=== PATIENT | female | born 1975 | race African-American/Black ===

== ENCOUNTER 2018-08-20 10:44 | Emergency (ER) | payer OTHER ==
--- NOTE | 2018-08-20 11:18 | ER ---
Nurse's Notes [facility] Name: Mirella Caruso Age: 43 yrs Sex: Female : 1975 Arrival Date: 08/20/2018 Time: 10:47 Bed 15 Private MD: Carlos Aguilera Diagnosis: Candidiasis Presentation: 08/20 11:05 Presenting complaint: Patient states: has been dealing with a yeast infection X 3 iw weeks, missed her doctor appt to get a refill on her prescription. Pt denies pain or burning with urination. Transition of care: patient was not received from another setting of care. Onset of symptoms was July 28, 2018. Risk Assessment: Do you want to hurt yourself or someone else? Patient reports no desire to harm self or others. Initial Sepsis Screen: Does the patient meet any 2 criteria? No. Patient's initial sepsis screen is negative. Does the patient have a suspected source of infection? No. Patient's initial sepsis screen is negative. Care prior to arrival: None. 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 - Social history:: Smoking status: Patient/guardian denies using tobacco. - Ebola Screening: : Patient negative for fever greater than or equal to 101.5 degrees Fahrenheit, and additional compatible Ebola Virus Disease symptoms Patient denies exposure to infectious person Patient denies travel to an Ebola-affected area in the 21 days before illness onset No symptoms or risks identified at this time. Screenin:10 Abuse screen: Denies threats or abuse. Denies injuries from another. Nutritional ph screening: No deficits noted. Tuberculosis screening: No symptoms or risk factors identified. Fall Risk None identified. Assessment: 11:10 General: Appears in no apparent distress. comfortable, well groomed, Behavior is calm, ph cooperative, appropriate for age, Denies fever, feeling ill, chills. Pain: Complains of pain in pelvis Quality of pain is described as burning. Neuro: Level of Consciousness is awake, alert, obeys commands, Oriented to person, place, time, situation. Cardiovascular: Capillary refill < 3 seconds in bilateral fingers Patient's skin is warm and dry. Respiratory: Airway is patent Respiratory effort is even, unlabored. : Reports vaginal itching. Derm: Skin is healthy with good turgor, Skin is pink, warm \T\ dry. Musculoskeletal: Circulation, motion, and sensation intact. Range of motion: intact in all extremities. Vital Signs: 11:07 BP 118 / 88; Pulse 77; Resp 16; Temp 98.2; Pulse Ox 100% on R/A; Weight 92.53 kg; iw Height 5 ft. 4 in. (162.56 cm); 11:07 Body Mass Index 35.02 (92.53 kg, 162.56 cm) iw ED Course: 10:47 Patient arrived in ED. mr 10:48 Carlos Aguilera MD is Private Physician. mr 11:00 [facility] Esp[facility] kb 11:00 João Mcmahan MD is Attending Physician. kb 11:07 Triage completed. iw 11:09 Arm band placed on. iw 11:10 Patient has correct armband on for positive identification. Bed in low position. Call ph light in reach. 11:15 Citlali Vanegas, RN is Primary Nurse. ph 11:30 No provider procedures requiring assistance completed. Patient did not have IV access ph during this emergency room visit. Administered Medications: No medications were administered Outcome: 11:17 Discharge ordered by MD. kb 11:31 Patient left the ED. ph 11:31 Discharged to home ambulatory. ph 11:31 Condition: good 11:31 Discharge instructions given to patient, Instructed on discharge instructions, follow up and referral plans. medication usage, Demonstrated understanding of instructions, follow-up care, medications, Prescriptions given X 1. Signatures: Shanda Espinoza FNP-C FNP-Ckb Rosa Zhang Zayra Santana RN RN Citlali Vanegas RN RN ph
--- NOTE | 2018-08-20 11:18 | EDPHYS ---
Physician Documentation [facility] Name: Mirella Caruso Age: 43 yrs Sex: Female : 1975 Arrival Date: 08/20/2018 Time: 10:47 Bed 15 Private MD: Carlos Aguilera ED Physician João Mcmahan HPI: 08/20 11:11 This 43 yrs old Black Female presents to ER via Ambulatory with complaints of Vaginal kb Itching. 11:11 The patient presents with perineal itching, of both inguinal areas. Onset: The kb symptoms/episode began/occurred yesterday. Modifying factors: The symptoms are alleviated by nothing, the symptoms are aggravated by sweating, friction. Associated signs and symptoms: Pertinent positives: itching, Pertinent negatives: constipation, cramping, diarrhea, dyspareunia, dysuria, fever, hematuria, nausea, urinary frequency, vaginal bleeding, vaginal discharge, vomiting. Severity of symptoms: At their worst the symptoms were moderate, in the emergency department the symptoms are unchanged. The patient has not experienced similar symptoms in the past. The patient has not recently seen a physician. Pt reports she gets a yeast rash frequently to bilateral inguinal areas. States she normally uses clotrimazole/betamethasone for it, but she ran out. States she is about to go on vacation and needs the cream because she is having the symptoms again. . 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 - Social history:: Smoking status: Patient/guardian denies using tobacco. - Ebola Screening: : Patient negative for fever greater than or equal to 101.5 degrees Fahrenheit, and additional compatible Ebola Virus Disease symptoms Patient denies exposure to infectious person Patient denies travel to an Ebola-affected area in the 21 days before illness onset No symptoms or risks identified at this time. ROS: 11:16 Constitutional: Negative for fever, chills, and weight loss, Neck: Negative for injury, kb pain, and swelling, Cardiovascular: Negative for chest pain, palpitations, and edema, Respiratory: Negative for shortness of breath, cough, wheezing, and pleuritic chest pain, Abdomen/GI: Negative for abdominal pain, nausea, vomiting, diarrhea, and constipation, MS/Extremity: Negative for injury and deformity, Neuro: Negative for headache, weakness, numbness, tingling, and seizure. 11:16 Skin: Positive for rash, of the right femoral area and left femoral area, itching, raw. Exam: 11:11 Constitutional: This is a well developed, well nourished patient who is awake, alert, kb and in no acute distress. Head/Face: Normocephalic, atraumatic. Chest/axilla: Normal chest wall appearance and motion. Nontender with no deformity. No lesions are appreciated. Cardiovascular: Regular rate and rhythm with a normal S1 and S2. No gallops, murmurs, or rubs. Normal PMI, no JVD. No pulse deficits. Respiratory: Lungs have equal breath sounds bilaterally, clear to auscultation and percussion. No rales, rhonchi or wheezes noted. No increased work of breathing, no retractions or nasal flaring. Abdomen/GI: Soft, non-tender, with normal bowel sounds. No distension or tympany. No guarding or rebound. No evidence of tenderness throughout. Skin: Warm, dry with normal turgor. Normal color with no rashes, no lesions, and no evidence of cellulitis. MS/ Extremity: Pulses equal, no cyanosis. Neurovascular intact. Full, normal range of motion. Neuro: Awake and alert, GCS 15, oriented to person, place, time, and situation. Cranial nerves II-XII grossly intact. Motor strength 5/5 in all extremities. Sensory grossly intact. Cerebellar exam normal. Normal gait. Vital Signs: 11:07 BP 118 / 88; Pulse 77; Resp 16; Temp 98.2; Pulse Ox 100% on R/A; Weight 92.53 kg; iw Height 5 ft. 4 in. (162.56 cm); 11:07 Body Mass Index 35.02 (92.53 kg, 162.56 cm) iw MDM: 11:01 Patient medically screened. kb 11:16 Data reviewed: vital signs, nurses notes. Data interpreted: Pulse oximetry: on room air kb is 100 %. Interpretation: normal. Counseling: I had a detailed discussion with the patient and/or guardian regarding: the historical points, exam findings, and any diagnostic results supporting the discharge/admit diagnosis, the need for outpatient follow up, a family practitioner, to return to the emergency department if symptoms worsen or persist or if there are any questions or concerns that arise at home. Administered Medications: No medications were administered Disposition: 11:34 Co-signature as Attending Physician, João Mcmahan MD. rn Disposition: 08/20/18 11:17 Discharged to Home. Impression: Candidiasis. - Condition is Stable. - Discharge Instructions: Skin Yeast Infection. - Prescriptions for clotrimazole- betamethasone 1-0.05 % Topical lotion - apply 1 application by TOPICAL route 2 times per day As needed; 1 tube. - Medication Reconciliation Form, Thank You Letter, Antibiotic Education, Prescription Opioid Use form. - Follow up: Emergency Department; When: As needed; Reason: Worsening of condition. Follow up: Private Physician; When: 2 - 3 days; Reason: Recheck today's complaints, Continuance of care, Re-evaluation by your physician. Signatures: Shanda Espinoza, NATHANIEL-C REGISTERED MAIL CLERK-Zayra Miranda, João Owen RN, MD MD rn Hall, Patricia, RN RN ph Corrections: (The following items were deleted from the chart) 11: 11:17 08/20/2018 11:17 Discharged to Home. Impression: Candidiasis. Condition is ph Stable. Discharge Instructions: Skin Yeast Infection. Prescriptions for clotrimazole-betamethasone 1-0.05 % Topical lotion - apply 1 application by TOPICAL route 2 times per day As needed; 1 tube. and Forms are Medication Reconciliation Form, Thank You Letter, Antibiotic Education, Prescription Opioid Use. Follow up: Emergency Department; When: As needed; Reason: Worsening of condition. Follow up: Private Physician; When: 2 - 3 days; Reason: Recheck today's complaints, Continuance of care, Re-evaluation by your physician. kb
== END 2018-08-20 11:31 | disposition home or self-care (01) ==
LOC: ER 10:44
DX: B37.3 Candidiasis of vulva and vagina (principal); Z88.0 Allergy status to penicillin
CPT/HCPCS: 99282

== ENCOUNTER 2019-07-08 21:37 | Emergency (ER) | payer OTHER ==
[2019-07-08] MEDS ORDERED: TETRACAINE HCL 0.5% 4ML OPTH ONE (21:56)
[2019-07-08] MEDS ORDERED: FLUORESCEIN SODIUM 1 MG/WRAP ONE (21:56)
--- NOTE | 2019-07-08 22:31 | EDPHYS ---
Physician Documentation [facility] Name: Mirella Caruso Age: 44 yrs Sex: Female : 1975 Arrival Date: 07/08/2019 Time: 21:41 Bed 15 Private MD: Carlos Aguilera ED Physician Tk Hernandez HPI: 07/08 22:20 This 44 yrs old Black Female presents to ER via Ambulatory with complaints of Foreign ma2 Body In Eye. 22:20 Onset: The symptoms/episode began/occurred suddenly, 2 day(s) ago. Associated signs and ma2 symptoms: Pertinent negatives: chills, dizziness, fever, runny nose. Patient wears glasses. Severity of symptoms: At their worst the symptoms were very mild in the emergency department the symptoms are unchanged. The patient has not experienced similar symptoms in the past. 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 - Coronavirus screen:: The patient has NOT traveled to [place] in the past 14 days. Proceed with normal triage process as indicated. - Social history:: Smoking status: Patient/guardian denies using tobacco, the patient reports quitting approximately 8 years ago. - Ebola Screening: : No symptoms or risks identified at this time. ROS: 22:25 Constitutional: Negative for fever, chills, and weight loss. ma2 22:25 All other systems are negative. Exam: 22:25 Visual Acuity: Visual acuity is within normal limits. ma2 22:25 Constitutional: This is a well developed, well nourished patient who is awake, alert, and in no acute distress. Head/Face: Normocephalic, atraumatic. Eyes: Pupils equal round and reactive to light, extra-ocular motions intact. Lids and lashes normal. Conjunctiva and sclera are non-icteric and not injected. Cornea within normal limits. Periorbital areas with no swelling, redness, or edema. wood lamp exam done with tetracaine and floric. exam, dust peice seen embedded n cornea, no glob rupture, attempted to romove with qtips, after flush with ns, failed attempts ENT: Nares patent. No nasal discharge, no septal abnormalities noted. Tympanic membranes are normal and external auditory canals are clear. Oropharynx with no redness, swelling, or masses, exudates, or evidence of obstruction, uvula midline. Mucous membranes moist. Vital Signs: 21:56 BP 130 / 81; Pulse 81; Resp 16 S; Temp 98.1(O); Pulse Ox 100% on R/A; Weight 90.72 kg bb (R); Height 5 ft. 4 in. (162.56 cm) (R); Pain 9/10; 22:35 BP 109 / 68; Pulse 70; Resp 16; Pulse Ox 100% on R/A; rv 21:56 Body Mass Index 34.33 (90.72 kg, 162.56 cm) bb Visual Acuity: 21:57 Left Eye Visual acuity 20/15, ; Right Eye Visual acuity 20/15, ; Both Eyes Visual bb acuity 20/15; Without Lenses; MDM: 21:45 Patient medically screened. ma2 22:25 Differential diagnosis: Corneal abrasion of Data reviewed: vital signs, nurses notes. ma2 Counseling: I had a detailed discussion with the patient and/or guardian regarding: the historical points, exam findings, and any diagnostic results supporting the discharge/admit diagnosis, the presence of at least one elevated blood pressure reading (>120/80) during this emergency department visit, the need for outpatient follow up. Response to treatment: There is no appreciated change of the patient's symptoms at this time. Administered Medications: 22:15 Drug: Tetracaine Drops 0.5 % 1 drops {Note: Dr Hernandez used it on the left eye.} Route: rv Ophthalmic; Site: left eye; 22:38 Follow up: Response: No adverse reaction rv Disposition: 07/08/19 22:30 Discharged to Home. Impression: Foreign body in conjunctival sac, left eye. - Condition is Stable. - Discharge Instructions: Corneal Abrasion, [id number]. - Prescriptions for Gentamicin 0.3 % Ophthalmic Drops - instill 1 drop by OPHTHALMIC route every 4 hours for 7 days; 1 bottle. - Medication Reconciliation Form, Thank You Letter, Antibiotic Education, Prescription Opioid Use form. - Follow up: Carlos Kennedy MD; When: Tomorrow; Reason: Continuance of care. Follow up: Mario Kennedy MD; When: Tomorrow; Reason: Continuance of care. Signatures: Ambreen Glover RN RN Tk Caballero MD MD ma2 Sanjay Elizalde RN RN rv Corrections: (The following items were deleted from the chart) 22:39 22:30 07/08/2019 22:30 Discharged to Home. Impression: Foreign body in conjunctival rv sac, left eye. Condition is Stable. Forms are Medication Reconciliation Form, Thank You Letter, Antibiotic Education, Prescription Opioid Use. Follow up: Mario Kennedy; When: Tomorrow; Reason: Continuance of care. ma2
--- NOTE | 2019-07-08 22:31 | ER ---
Nurse's Notes [facility] Name: Mirella Caruso Age: 44 yrs Sex: Female : 1975 Arrival Date: 07/08/2019 Time: 21:41 Bed 15 Private MD: Carlos Aguilera Diagnosis: Foreign body in conjunctival sac, left eye Presentation: 07/08 21:53 Presenting complaint: Patient states: she was cleaning house yesterday dusting the bb ceiling and got something in her left eye which is very painful and is making her eye red. Transition of care: patient was not received from another setting of care. Onset of symptoms was July 07, 2019. Risk Assessment: Do you want to hurt yourself or someone else? Patient reports no desire to harm self or others. Initial Sepsis Screen: Does the patient meet any 2 criteria? No. Patient's initial sepsis screen is negative. Does the patient have a suspected source of infection? No. Patient's initial sepsis screen is negative. Care prior to arrival: None. 21:53 Method Of Arrival: Ambulatory bb 21:53 Acuity: PING 4 bb Triage Assessment: 22:37 General: Behavior is calm, cooperative. 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 - Coronavirus screen:: The patient has NOT traveled to [place] in the past 14 days. Proceed with normal triage process as indicated. - Social history:: Smoking status: Patient/guardian denies using tobacco, the patient reports quitting approximately 8 years ago. - Ebola Screening: : No symptoms or risks identified at this time. Screenin:35 Abuse screen: Denies threats or abuse. Denies injuries from another. Nutritional rv screening: No deficits noted. Tuberculosis screening: No symptoms or risk factors identified. Fall Risk None identified. Assessment: 22:04 General: Appears in no apparent distress. Pain: Complains of pain in left eye. rv 22:04 Neuro: Level of Consciousness is awake, alert, obeys commands, Oriented to person, rv place, time, situation. 22:04 EENT: Eyes redness on the left eye. rv 22:34 Reassessment: Dr Hernandez done the eye exam the bedside. explained the plan of care. rv discharged ambulatory. Patient states feeling better. Vital Signs: 21:56 BP 130 / 81; Pulse 81; Resp 16 S; Temp 98.1(O); Pulse Ox 100% on R/A; Weight 90.72 kg bb (R); Height 5 ft. 4 in. (162.56 cm) (R); Pain 9/10; 22:35 BP 109 / 68; Pulse 70; Resp 16; Pulse Ox 100% on R/A; rv 21:56 Body Mass Index 34.33 (90.72 kg, 162.56 cm) bb Visual Acuity: 21:57 Left Eye Visual acuity 20/15, ; Right Eye Visual acuity 20/15, ; Both Eyes Visual bb acuity 20/15; Without Lenses; ED Course: 21:41 Patient arrived in ED. es 21:41 Carlos Aguilera MD is Private Physician. es 21:45 Tk Hernandez MD is Attending Physician. ma2 21:51 Sanjay Elizalde RN is Primary Nurse. rv 21:55 Triage completed. bb 21:56 Arm band placed on Patient placed in an exam room, on a stretcher, on pulse oximetry. bb 22:28 Carlos Kennedy MD is Referral Physician. ma2 22:28 Mario Kennedy MD is Referral Physician. ma2 22:28 Referral Physician role handed off by Carlos Kennedy MD ma2 22:36 No provider procedures requiring assistance completed. Patient did not have IV access rv during this emergency room visit. 22:37 Patient has correct armband on for positive identification. Pulse ox on. NIBP on. rv Administered Medications: 22:15 Drug: Tetracaine Drops 0.5 % 1 drops {Note: Dr Hernandez used it on the left eye.} Route: rv Ophthalmic; Site: left eye; 22:38 Follow up: Response: No adverse reaction rv Outcome: 22:30 Discharge ordered by . ma2 22:36 Discharged to home ambulatory. rv 22:36 Condition: good 22:36 Discharge instructions given to patient, Instructed on discharge instructions, follow up and referral plans. medication usage, Demonstrated understanding of instructions, follow-up care, medications, Prescriptions given X 1. 22:39 Patient left the ED. rv Signatures: Kimberly Jonas Brenda RN RN bb Tk Hernandez MD MD ma2 Sanjay Elizalde RN RN rv
[2019-07-08 23:09] VITALS: TEMP 98.1; O2SAT 100
[2019-07-08 23:13] VITALS: BP 109/68
== END 2019-07-08 22:39 | disposition home or self-care (01) ==
LOC: ER 21:37
DX: T15.12XA Foreign body in conjunctival sac, left eye, initial encounter (principal); Z88.0 Allergy status to penicillin
CPT/HCPCS: 99283

== ENCOUNTER 2021-10-20 21:35 | Emergency (ER) | payer OTHER, SELFPAY ==
[2021-10-21 01:02] LABS: Absolute Lymphocytes (CBC) 3.4 K/uL (0.7-4.9); Lymphocytes % 43.3 % (15.3-44.8); MPV 7.4 fL (7.6-11.3); RBC Red Blood Cell Count 4.09 M/uL (3.86-4.86)
[2021-10-21] MEDS ORDERED: MORPHINE 4 MG/ML SYR ONE (01:04)
[2021-10-21] MEDS ORDERED: NA CHLORIDE 0.9% 1,000 ML ONE (01:05)
[2021-10-21] MEDS ORDERED: ONDANSETRON 4 MG/2 ML VIAL ONE (01:06)
[2021-10-21 01:12] LABS: Albumin 3.4 g/dL (3.4-5.0); Bilirubin Direct 0.1 mg/dL (0-0.2); Bilirubin Total 0.4 mg/dL (0.2-1.0); Potassium 3.7 mmol/L (3.5-5.1); Protein, Total 7.3 g/dL (6.4-8.2)
[2021-10-21 01:19] LABS: Protime INR 1.03
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
[2021-10-21 03:38] VITALS: TEMP 97.9; O2SAT 100
[2021-10-21 03:48] VITALS: BP 135/95
--- NOTE | 2021-10-21 13:00 | EKG ---
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
--- NOTE | 2021-10-21 18:46 | RAD REPORT ---
EXAM DESCRIPTION: CT Head and Cervical Spine Without Intravenous Contrast CLINICAL HISTORY: Trauma TECHNIQUE: Axial computed tomography images of the head/brain and cervical spine without intravenous contrast. Sagittal and coronal reformatted images were created and reviewed. This CT exam was pe rformed using one or more of the following dose reduction techniques: automated exposure control, a djustment of the mA and/or kV according to patient size, and/or use of iterative reconstruction techn ique. COMPARISON: No relevant prior studies available. FINDINGS: Brain: Unremarkable. No hemorrhage. No significant white matter disease. No edema. Ventricles: Unremarkable. No ventriculomegaly. Skull: No acute fracture. Sinuses: Unremarkable as visualized. No acute sinusitis. Mastoid air cells: Unremarkable as visualized. No mastoid effusion. Vertebrae: Unremarkable. No acute fracture. Normal alignment. Discs/spinal canal/neural foramina: Mild to moderate multilevel disc degeneration with small to mod erate concentric disc osteophytes. No critical canal stenosis. Soft tissues: Unremarkable. * A single impression for all exams can be found at the end of this report EXAM DESCRIPTION: CT Chest, Abdomen and Pelvis With Intravenous Contrast CLINICAL HISTORY: Trauma TECHNIQUE: Axial computed tomography images of the chest, abdomen and pelvis with intravenous contra st. Sagittal and coronal reformatted images were created and reviewed. This CT exam was performed using one or more of the following dose reduction techniques: automated exposure control, adjustme nt of the mA and/or kV according to patient size, and/or use of iterative reconstruction technique. COMPARISON: No relevant prior studies available. FINDINGS: CHEST: Lungs: Minimal bibasilar subsegmental atelectasis/pleural parenchymal scar. Pleural space: Unremarkable. No significant effusion. No pneumothorax. Heart: Unremarkable. No cardiomegaly. No significant pericardial effusion. No significant cor onary artery calcifications. ABDOMEN: Liver: Unremarkable. No mass. Gallbladder and bile ducts: Prior cholecystectomy. Mild biliary dilatation. Pancreas: Unremarkable. No ductal dilation. No mass. Spleen: Unremarkable. No splenomegaly. Adrenals: Unremarkable. No mass. Kidneys and ureters: Unremarkable. No hydronephrosis. No solid mass. Stomach and bowel: Duodenal diverticulum. Moderate stool. Colonic diverticula without adjacent in flammatory change. No obstruction. No mucosal thickening. PELVIS: Appendix: Normal caliber appendix. No findings to suggest acute appendicitis. Bladder: Unremarkable. No mass. Reproductive: Lobulated contour at the uterine fundus suggestive of an underlying fibroid. Bilatera l tubal ligation clips. No adnexal mass. CHEST, ABDOMEN and PELVIS: Intraperitoneal space: Unremarkable. No significant fluid collection. No free air. Bones/joints: Multilevel spondylosis. No acute fracture. No dislocation. Soft tissues: Small fat-containing umbilical hernia. Vasculature: Unremarkable. No aortic aneurysm. Lymph nodes: Unremarkable. No enlarged lymph nodes. * A single impression for all exams can be found at the end of this report IMPRESSION: CT Head and Cervical Spine Without Intravenous Contrast: 1. No acute intracranial or extra-axial abnormality. 2. No acute cervical spine injury. CT Chest, Abdomen and Pelvis With Intravenous Contrast: 1. No acute intrathoracic injury. 2. No evidence for hollow or solid organ injury. 3. Other findings as above. Electronically signed by: Erika Grande MD 10/21/2021 2:41 AM CDT Due to temporary technical issues with the PACS/Fluency reporting system, reports are being signed by the in house radiologists without review as a courtesy to insure prompt reporting. The interpreting radiologist is fully responsible for the content of the report.
== END 2021-10-21 03:04 | disposition home or self-care (01) ==
LOC: ER 21:35
DX: S39.012A Strain of muscle, fascia and tendon of lower back, initial encounter (principal); S20.219A Contusion of unspecified front wall of thorax, initial encounter; M54.2 Cervicalgia; V49.49XA Driver injured in collision with other motor vehicles in traffic accident, initial encounter; Z88.0 Allergy status to penicillin
CPT/HCPCS: 96361; 93005; 85025; 80048; 36415; 86900; 86850; 85610; 86901; 80076; 85730; 70450; 72125; 71260; 74177; 96375; 96374; 99284; Q9967; J7030; J2405

== ENCOUNTER 2022-08-06 07:32 | Emergency (ER) | payer SELFPAY ==
--- NOTE | 2022-08-06 08:27 | ER ---
Nurse's Notes [facility] Name: Mriella Caruso Age: 47 yrs Sex: Female : 1975 Arrival Date: 08/06/2022 Time: 07:35 Bed 6 Private MD: Carlos Aguilera Diagnosis: Subungual abscess Presentation: 08/06 07:39 Chief complaint: Artificial nail got caught when attempting to open tote bag last week, hb had the artificial nail removed but is having increasing pain in right ring finger over last 2 days. Coronavirus screen: At this time, the client does not indicate any symptoms associated with coronavirus-19. Ebola Screen: No symptoms or risks identified at this time. Initial Sepsis Screen: Does the patient meet any 2 criteria? No. Patient's initial sepsis screen is negative. Does the patient have a suspected source of infection? No. Patient's initial sepsis screen is negative. Risk Assessment: Do you want to hurt yourself or someone else? Patient reports no desire to harm self or others. Onset of symptoms was July 30, 2022. 07:39 Method Of Arrival: Ambulatory hb 07:39 Acuity: PING 4 hb Triage Assessment: 07:41 General: Appears in no apparent distress. Behavior is calm, cooperative. Pain: Pain hb currently is 10 out of 10 on a pain scale. EENT:. Neuro: Level of Consciousness is awake, alert, obeys commands, Oriented to person, place, time, situation. Cardiovascular: Patient's skin is warm and dry. Respiratory: Respiratory effort is even, unlabored, Respiratory pattern is regular, symmetrical. Musculoskeletal: right ring fingernail discolored green, mild swelling noted to fingertip. Historical: - Allergies: 07:41 PENICILLINS; hb - PMHx: 07:41 Migraines; hb - Immunization history:: Adult Immunizations up to date. - Social history:: Smoking status: Patient denies any tobacco usage or history of. Screenin:43 [facility] ED Fall Risk Assessment (Adult) Score/Fall Risk Level 0 - 2 = Low Risk hb Oriented to surroundings, Maintained a safe environment. Abuse screen: Denies threats or abuse. Denies injuries from another. Nutritional screening: No deficits noted. Tuberculosis screening: No symptoms or risk factors identified. Assessment: 07:43 General: See triage assessment. hb Vital Signs: 07:39 BP 129 / 98; Pulse 87; Resp 16; Temp 97.1; Pulse Ox 100% on R/A; Weight 95.25 kg; hb Height 5 ft. 4 in. ; Pain 10/10; 07:39 Body Mass Index 36.05 (95.25 kg, 162.56 cm) hb 07:39 Pain Scale: Adult hb ED Course: 07:35 Patient arrived in ED. mr 07:35 Carlos Aguilera MD is Private Physician. mr 07:41 Triage completed. hb 07:41 Arm band placed on. hb 07:43 Patient has correct armband on for positive identification. hb 07:43 No provider procedures requiring assistance completed. Patient did not have IV access hb during this emergency room visit. 07:58 Catracho Hare, RN is Primary Nurse. bp 08:00 Shanda Espinoza FNP-C is PHCP. kb 08:00 Maximilian Kendall MD is Attending Physician. kb Administered Medications: No medications were administered Medication: 07:43 VIS not applicable for this client. hb Outcome: 08:26 Discharge ordered by . kb Signatures: Shanda Espinoza FNP-C FNP-Aneudy Moorea Rosa ArmstrongHolley, RN RN hb Catracho Hare, RN RN bp
--- NOTE | 2022-08-06 08:27 | EDPHYS ---
Physician Documentation [facility] Name: Mirella Caruso Age: 47 yrs Sex: Female : 1975 Arrival Date: 08/06/2022 Time: 07:35 Bed 6 Private MD: Carlos Aguilera ED Physician Maximilian Kendall HPI: 08/06 08:18 This 47 yrs old Black Female presents to ER via Ambulatory with complaints of Infected kb finger. 08:19 The patient presents with an abscess of the right ring fingernail. Description: kb swollen. Onset: The symptoms/episode began/occurred yesterday. Possible cause(s): unknown. Associated signs and symptoms: Pertinent positives: swelling. Modifying factors: the symptoms are alleviated by nothing, the symptoms are aggravated by pressure. Severity of symptoms: At their worst the symptoms were mild, in the emergency department the symptoms are unchanged. The patient has not experienced similar symptoms in the past. The patient has not recently seen a physician. Patient reports she hit her right ring finger last week and yesterday noticed discoloration under nail and swelling to fingertip.. Historical: - Allergies: 07:41 PENICILLINS; hb - PMHx: 07:41 Migraines; hb - Immunization history:: Adult Immunizations up to date. - Social history:: Smoking status: Patient denies any tobacco usage or history of. ROS: 08:15 Constitutional: Negative for fever, chills, and weight loss. kb 08:15 MS/extremity: Positive for pain, swelling, tenderness, of the right ring fingernail. 08:15 All other systems are negative. Exam: 08:16 Constitutional: This is a well developed, well nourished patient who is awake, alert, kb and in no acute distress. Head/Face: Normocephalic, atraumatic. ENT: Moist Mucous membranes Cardiovascular: Regular rate and rhythm with a normal S1 and S2. No gallops, murmurs, or rubs. No pulse deficits. Respiratory: Respirations even and unlabored. No increased work of breathing. Talking in full sentences Abdomen/GI: Soft, non-tender. No distention Skin: Warm, dry with normal turgor. Normal color. Neuro: Awake and alert, GCS 15, oriented to person, place, time, and situation. Moves all extremities. Normal gait. 08:16 Musculoskeletal/extremity: Nails: subungual abscess right ring finger. Vital Signs: 07:39 BP 129 / 98; Pulse 87; Resp 16; Temp 97.1; Pulse Ox 100% on R/A; Weight 95.25 kg; hb Height 5 ft. 4 in. ; Pain 10/10; 07:39 Body Mass Index 36.05 (95.25 kg, 162.56 cm) hb 07:39 Pain Scale: Adult hb MDM: 08:00 Patient medically screened. kb 08:15 Data reviewed: vital signs, nurses notes. kb 08:24 Differential diagnosis: abscess, Paronychia, fungal infection. Counseling: I had a kb detailed discussion with the patient and/or guardian regarding: the historical points, exam findings, and any diagnostic results supporting the discharge/admit diagnosis, the need for outpatient follow up, a hand specialist, to return to the emergency department if symptoms worsen or persist or if there are any questions or concerns that arise at home. ED course: Patient is a 47-year-old female with a history of migraines who presents for swelling to tip of right ring finger and discoloration under nail that started yesterday. On exam patient has a subungual abscess. Nontoxic in appearance. Full range of motion. 18-gauge needle used to make a hole in the top of the nail, purulent drainage expressed. Patient educated on hot water soaks and need for antibiotics. Educated to follow-up with hand and/or dermatology for persistent symptoms. Verbal understanding received.. Administered Medications: No medications were administered Disposition Summary: 08/06/22 08:26 Discharge Ordered Location: Home Condition: Stable Diagnosis - Subungual abscess Followup: kb - With: Emergency Department - When: As needed - Reason: Worsening of condition Followup: kb - With: Private Physician - When: 2 - 3 days - Reason: Recheck today's complaints, Continuance of care, Re-evaluation by your physician Forms: - Medication Reconciliation Form kb - Thank You Letter kb - Antibiotic Education kb - Prescription Opioid Use kb Signatures: Shanda Espinoza FNP-C FNP-Justinb Holley Armstrong, RN RN hb
[2022-08-06 08:54] VITALS: BP 129/98; TEMP 97.1; O2SAT 100
== END 2022-08-06 08:47 | disposition home or self-care (01) ==
LOC: ER 07:32
DX: L03.011 Cellulitis of right finger (principal)
CPT/HCPCS: 99282

== ENCOUNTER 2024-09-26 19:52 | Emergency (ER) | payer OTHER, SELFPAY ==
--- OUTSIDE RECORDS SUMMARY | 2024-09-26 19:55 | XMS REPORT | Continuity of Care Document ---
Author Name Unknown Address [address] [place] [address] [facility] [place] [facility] [address] [place] [address] Care Team Providers Care Customer Associate Name Role Phone CECILLE CASANDRA Attending Clinician Unavailable HEATH HAMMOND Attending Clinician Unavailable MD PAIGE Attending Clinician Unavailab le LAB90 Attending Clinician Unavailable LILY WASHINGTON Attending Clinician Unavailab le LAB59 Attending Clinician Unavailable BREANNA PADRON Attending Clinician UnavailTABATHA Castellanos Attending Clinician Unavailable Payers Payer Name Policy Type Policy Number Effective Date Expirati on Date Source [facility] 3 [id number] 2023 00:00:00 [facility] JEFF URBAN [employer]AY FOCUS 9 [id number] 2024 00:00:00 [employer] [facility] [employer] 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 ON 9 [id number] 2023 00:00:00 Problems Condition Name Condition Details Condition Category Status Onset Date Resolution Date Last Treatment Date Treating Clinician Comments Source Type 2 diabetes mellitus without complicati on, without long-term current use of insulin (multi HCC) Type 2 diabetes mellitus without complicati on, without long-term current use of insulin (multi HCC) Disease Active 05-24 00:00: 00 Allison bird Type 2 diabetes mellitus without complicati on, without long-term current use of insulin (multi HCC) Type 2 diabetes mellitus without complicati on, without long-term current use of insulin (multi HCC) Disease Active 05-24 00:00: 00 Allison Calix - Externa l Well adult exam Well adult exam Disease Active 2022-05 00:00: 00 Allisno Daltonold - Externa l Obesity (BMI 30-39.9) Obesity (BMI 30-39.9) Disease Active 2022-05 00:00: 00 Allison Daltonold - Externa l Allergies, Adverse Reactions, Alerts Allergy Name Allergy Type Status Severity Reaction(s) Onset Date Inactive Date Treating Clinician Comments Source Penicill ins Propensi ty to adverse reaction s Active Itching 2016-05 00:00: 00 Allison Daltonold - Externa l Social History Social Habit Start Date Stop Date Quantity Comments Source Sexual orientation Tarun hong Fifi - External ASSERTION Not Allison Calix - External History of tobacco use Cigarette Smoker Allison raymundo - External Alcoholic beverage intake 2024-09-26 00:00:00 2024-09-26 00:00:00 Current drinker of alcohol (finding) Allison Calix - External Alcohol intake 2023-06-08 00:00:00 2023-06-08 00:00:00 Current drinker of alcohol (finding) Allison Calix - External Alcohol Comment 2023-04-27 00:00:00 2023-04-27 00:00:00 holidays Allison Calix - External Tobacco use and exposure 2023-04-27 00:00:00 2023-04-27 00:00:00 Smokeless tobacco non-user Allison Calix - External History of Social function 2023-04-27 00:00:00 2023-04-27 00:00:00 Allison Calix - External Tobacco Comment 2023-04-27 00:00:00 2023-04-27 00:00:00 Stopped 2011 Allison Calix - External Sex 2022-09-15 17:50:29 2022-09-15 17:50:29 Female (finding) Allison Calix - External Sex assigned at 1975 00:00:00 1975 00:00:00 Allison Calix - External Smoking Status Start Date Stop Date Source Ex-smoker 2023-04-27 00:00:00 2023-04-27 00:00:00 Tarun Weinstein External Medications Ordered Medication Name Filled Medication Name Start Date Stop Date Current Medication? Ordering Clinician Indication Dosage Frequency Signature (SIG) Comments Components Source Cyclobenzap rine HCl 5 MG oral Tablet 09-26 00:00: 00 Yes [id number] 5mg Q.[id number] 3D Take 1 tablet (5 mg total) by mouth 3 times daily as needed for muscle spasms. Allison Gonzaleza l Ibuprofen (MOTRIN) 800 MG oral Tablet 09-26 00:00: 00 Yes [id number] 800mg Q.[id number] 3D Take 1 tablet (800 mg total) by mouth every 8 hours as needed for pain. Allison Weinstein Externa l Semaglutide , 2 MG/DOSE, (Ozempic, 2 MG/DOSE,) [facility] 08-27 00:00: 00 Yes [id number] 2mg Q1W Inject 2 mg into the skin once a week. Allison Gonzaleza pelon Semaglutide , 2 MG/DOSE, (Ozempic, 2 MG/DOSE,) [facility] 00:00: 00 08-27 00:00 :00 No [id number] 2mg Q1W Inject 2 mg into the skin once a week. Allison Weinstein Externa l Semaglutide , 2 MG/DOSE, (Ozempic, 2 MG/DOSE,) [facility] 01[facility]15 00:00: 00 Yes [id number] 2mg Q1W Inject 2 mg into the skin once a week. Allison Gonzaleza pelon linaCLOtide (Linzess) 145 MCG oral Capsule 8- 00:00: 00 08-27 00:00 :00 No [id number] 145ug QD Take 1 capsule (145 mcg total) by mouth daily. Allison Calix - Externa l Ozempic, 2 MG/DOSE, subcutaneou s 7-05 00:00: 00 01-15 00:00 :00 No [id number] Inject 2mg into the skin once a week for 4 weeks Allison bird Semaglutide (0.25 or 0.5 mg/dose) 2 mg/3 mL SQ Solution Pen-Injecto r 10-13 11:18: 57 10-13 00:00 :00 No Inject into the skin once a week 2.4 weekly. Allison bird Semaglutide , 2 MG/DOSE, (Ozempic, 2 MG/DOSE,) subcutaneou s 10-13 00:00: 00 Yes [id number] 2mg Inject 2 mg into the skin once a week. Allison bird Topiramate 25 MG oral Tablet 06-20 00:00: 00 10-13 00:00 :00 No [id number] 25mg Take 1 tablet (25 mg total) by mouth 2 times daily. Allison bird OZEMPIC (0.25 or 0.5 mg/dose) 2 mg/3 mL SQ Solution Pen-Injecto r - 00:00: 00 10-13 00:00 :00 No [id number] .25mg Inject 0.25 mg into the skin once a week. Allison bird Topiramate 25 MG oral Tablet 2022-05 00:00: 00 Yes [id number] 25mg Take 1 tablet (25 mg total) by mouth 2 times daily. Allison bird Blood Glucose Monitoring Suppl (Blood Glucose Monitor System) w/Device does not apply Kit 2022-05 00:00: 00 Yes [id number] Take blood sugars twice a day. Allison bird Lancets does not apply Misc 2022-05 00:00: 00 Yes [id number] For twice daily glucose monitoring . Allison bird Glucose Blood in vitro Strip 2022-05 00:00: 00 Yes [id number] 1{each} Q.5D 1 each by other route 2 times daily. Allison bird Dulaglutide 0.75 MG/0.5ML subcutaneou s Solution Pen-injecto r 2022-05 00:00: 00 Yes [id number] .75mg Inject 0.75 mg into the skin once a week. Allison bird Metformin HCl 500 MG oral Tablet 2022-05 00:00: 00 10-13 00:00 :00 No [id number] 500mg Take 1 tablet (500 mg total) by mouth in the morning and 1 tablet (500 mg total) in the evening. Take with meals. Allison bird Vital Signs Vital Name Observation Time Observation Value Comments S leandroce Systolic blood pressure 2024-09-26 20:36:00 124 mm[Hg] Allison Mcgheeybo ld - External Diastolic blood pressure 2024-09-26 20:36:00 78 mm[Hg] Allison Mcgheeybo ld - External Heart rate 2024-09-26 20:36:00 78 /min Ashkanse y Seybold - External Body temperature 2024-09-26 20:36:00 36.33 Modesta Allison Seybold - External Respiratory rate 2024-09-26 20:36:00 20 /min Allison Seybold - External Body height 2024-09-26 20:36:00 162.6 cm Nini ey Seybold - External Body weight 2024-09-26 20:36:00 73.596 kg Nini ey Seybold - External BMI 2024-09-26 20:36:00 27.85 kg/m2 Nini ey Seybold - External Oxygen saturation in Arterial blood by Pulse oximetry 2024-09-26 20:36:00 99 /min Allison Daltono ld - External Systolic blood pressure 2024-08-27 20:44:00 106 mm[Hg] Allison Mcgheeybo ld - External Diastolic blood pressure 2024-08-27 20:44:00 70 mm[Hg] Allison Mcgheeybo ld - External Heart rate 2024-08-27 20:44:00 79 /min Kelse y Seybold - External Body temperature 2024-08-27 20:44:00 36.06 Modesta Allison Seybold - External Respiratory rate 2024-08-27 20:44:00 16 /min Allison Seybold - External Body height 2024-08-27 20:44:00 162.6 cm Nini ey Seybold - External Body weight 2024-08-27 20:44:00 73.029 kg Nini ey Seybold - External BMI 2024-08-27 20:44:00 27.64 kg/m2 Nini ey Seybold - External Oxygen saturation in Arterial blood by Pulse oximetry 2024-08-27 20:44:00 99 /min Allison Seybo ld - External Heart rate 2024-01-16 12:52:00 86 /min Kelse y Seybold - External Body temperature 2024-01-16 12:52:00 35.67 Modesta Allison Seybold - External Respiratory rate 2024-01-16 12:52:00 15 /min Allison Seybold - External Body height 2024-01-16 12:52:00 162.6 cm Nini ey Seybold - External Body weight 2024-01-16 12:52:00 75.206 kg Nini ey Seybold - External BMI 2024-01-16 12:52:00 28.46 kg/m2 Nini ey Seybold - External Systolic blood pressure 2024-01-16 12:52:00 96 mm[Hg] Allison Seybo ld - External Diastolic blood pressure 2024-01-16 12:52:00 60 mm[Hg] Allison Seybo ld - External Systolic blood pressure 2023-10-14 15:58:00 124 mm[Hg] Allison Seybo ld - External Diastolic blood pressure 2023-10-14 15:58:00 90 mm[Hg] Allison Seybo ld - External Heart rate 2023-10-14 15:58:00 72 /min Kelse y Seybold - External Body temperature 2023-10-14 15:58:00 36.22 Modesta Allison Seybold - External Respiratory rate 2023-10-14 15:58:00 15 /min Allison Seybold - External Body height 2023-10-14 15:58:00 162.6 cm Nini ey Seybold - External Body weight 2023-10-14 15:58:00 83.008 kg Nini ey Seybold - External BMI 2023-10-14 15:58:00 31.41 kg/m2 Nini ey Seybold - External Systolic blood pressure 2023-06-08 14:40:00 142 mm[Hg] Allison Seybo ld - External Diastolic blood pressure 2023-06-08 14:40:00 82 mm[Hg] Allison Seybo ld - External Heart rate 2023-06-08 14:40:00 82 /min Kelse y Seybold - External Body temperature 2023-06-08 14:40:00 36.94 Modesta Allison Seybold - External Respiratory rate 2023-06-08 14:40:00 22 /min Allison Seybold - External Body height 2023-06-08 14:40:00 162.6 cm Nini ey Seybold - External Body weight 2023-06-08 14:40:00 95.89 kg Nini ey Seybold - External BMI 2023-06-08 14:40:00 36.29 kg/m2 Nini ey Seybold - External Systolic blood pressure 2023-05-04 19:31:00 122 mm[Hg] Allison Seybo ld - External Diastolic blood pressure 2023-05-04 19:31:00 68 mm[Hg] Allison Seybo ld - External Heart rate 2023-05-04 19:31:00 88 /min Kelse y Seybold - External Body temperature 2023-05-04 19:31:00 36.83 Modesta Allison Seybold - External Respiratory rate 2023-05-04 19:31:00 16 /min Allison Seybold - External Body height 2023-05-04 19:31:00 162.6 cm Nini ey Seybold - External Body weight 2023-05-04 19:31:00 95.709 kg Nini ey Seybold - External BMI 2023-05-04 19:31:00 36.22 kg/m2 Nini ey Seybold - External Oxygen saturation in Arterial blood by Pulse oximetry 2023-05-04 19:31:00 98 /min Allison Seybo ld - External Systolic blood pressure 2023-04-28 21:01:00 118 mm[Hg] Allison Seybo ld - External Diastolic blood pressure 2023-04-28 21:01:00 74 mm[Hg] Allison Seybo ld - External Heart rate 2023-04-28 21:01:00 80 /min Kelse y Seybold - External Body temperature 2023-04-28 21:01:00 36.78 Modesta Allison Calix - External Respiratory rate 2023-04-28 21:01:00 16 /min Allison Mcgheechina - External Body height 2023-04-28 21:01:00 162.6 cm Nini Calix - External Body weight 2023-04-28 21:01:00 98.034 kg Nini Calix - External BMI 2023-04-28 21:01:00 37.10 kg/m2 Nini Calix - External Oxygen saturation in Arterial blood by Pulse oximetry 2023-04-28 21:01:00 98 /min Allison Mcgheemechellelilia ld - External Plan of Care Planned Activity Planned Date Details Comments Source Encounters Start Date/Time End Date/Time Encounter Type Admission Type Attending [facility] Care Department Encounter ID Source 2024-10-05 08:30:00 2024-10-05 08:30:00 Outpatient CASANDRA ODEN [id number] Allison Calix 2024-09-26 15:30:00 2024-09-26 15:30:00 Outpatient HEATH HAMMOND [id number] Allison china 2024-08-27 15:30:00 2024-08-27 15:30:00 Outpatient CASANDRA ODEN [id number] Allison china 2024-08-27 00:00:00 2024-08-27 00:00:00 Outpatient CASANDRA ODEN [id number] Allison Calix 2024-08-02 00:00:00 2024-08-02 00:00:00 Outpatient MD ALLISON MORALES [id number] Allison china 2024-07-16 15:30:00 2024-07-16 15:30:00 Outpatient CASANDRA ODEN [id number] Allison Calix 2024-06-19 08:00:00 2024-06-19 08:00:00 Outpatient CASANDRA ODEN [id number] Allison Calxi 2024-01-16 08:00:00 2024-01-16 08:00:00 Outpatient CASANDRA ODEN [id number] Allison Seybzackary 2023-12-26 10:10:00 2023-12-26 10:10:00 Outpatient LAB90 ALLISON ALLISON [id number] Allison Seybold 2023-12-22 00:00:00 2023-12-22 00:00:00 Outpatient CASANDRA ODEN ALLISON COOPER [id number] Allison Seybold 2023-11-25 00:00:00 2023-11-25 00:00:00 Outpatient CASANDRA ODEN ALLISON ALLISON [id number] Allison Seybold 2023-10-14 11:00:00 2023-10-14 11:00:00 Outpatient CASANDRA ODEN ALLISON COOPER [id number] Allison Seybold 2023-08-11 00:00:00 2023-08-11 00:00:00 Outpatient FELIXTARIKA ALLISON COOPER [id number] Allison Seybold 2023-06-28 10:35:00 2023-06-28 10:35:00 Outpatient ALLISON COOPER [id number] Allison Seybold 2023-06-28 00:00:00 2023-06-28 00:00:00 Outpatient FELIX LILY ALLISON COOPER [id number] Allison Seybold 2023-06-17 00:00:00 2023-06-17 00:00:00 Outpatient CASANDRA ODEN ALLISON COOPER [id number] Allison Seybold 2023-06-08 09:45:00 2023-06-08 09:45:00 Outpatient LAB59 ALLISON COOPER [id number] Allison Seybold 2023-06-08 09:00:00 2023-06-08 09:00:00 Outpatient NIKAHD, AMIRHOSSEIN ALLISON COOPER [id number] Allison Seybold 2023-06-07 10:20:00 2023-06-07 10:20:00 Outpatient ALLISON COOPER [id number] Allison Seybzackary 2023-06-06 00:00:00 2023-06-06 00:00:00 Outpatient LILY WASHINGTON [id number] Allison Seybold 2023-05-27 00:00:00 2023-05-27 00:00:00 Outpatient TABATHA MILLSSEY [id number] [facility] 2023-05-25 00:00:00 2023-05-25 00:00:00 Outpatient TABATHA MILLS [id number] Allison Seybzackary 2023-05-20 00:00:00 2023-05-20 00:00:00 Outpatient TABATHA MILLS [id number] [facility] 2023-05-04 13:30:00 2023-05-04 13:30:00 Outpatient CASANDRA ODEN ALLISON [id number] [facility] 2023-05-03 00:00:00 2023-05-03 00:00:00 Outpatient LILY WASHINGTON [id number] [facility] 2023-05-02 00:00:00 2023-05-02 00:00:00 Outpatient LILY WASHINGTON ALLISON [id number] [facility] 2023-05-02 00:00:00 2023-05-02 00:00:00 Outpatient LILY WASHINGTON ALLISON [id number] [facility] 2023-04-29 08:05:00 2023-04-29 08:05:00 Outpatient ANA COOPER [id number] [facility] 2023-04-28 15:00:00 2023-04-28 15:00:00 Outpatient LILY WASHINGTON ALLISON [id number] [facility] Notes Date/Time Note Provider Source 2024-09-26 15:44:25 Chief Complaint Patient presents with Arm Pain Left arm pain, limited movement Ellen Sanchez LVN AllisonFifi [facility] 2024-08-27 15:47:19 Chief Complaint Patient presents with Diabetes Diabetic follow up Lili Landeros MA Lili CooperFifi [facility] 2024-01-16 07:55:02 Chief Complaint Patient presents with Follow-up Follow up on weight management Lili Landeros MA II [facility] 2023-10-14 11:01:54 Chief Complaint Patient presents with Diabetes Diabetic follow up Lili Landeros MA II Lili Landeros MA, II [facility]
[2024-09-26] MEDS ORDERED: HYDROCODONE/APAP 5/325 MG TAB ONE (20:19)
[2024-09-26] MEDS ORDERED: DIAZEPAM 2 MG TABLET ONE (20:19)
--- NOTE | 2024-09-26 21:16 | RAD REPORT ---
EXAMINATION: Shoulder Left 2+ Views CLINICAL INDICATION: Female, 49 years old. PAIN COMPARISON: No prior exam. FINDINGS: No acute fracture. No malalignment/dislocation. Mild left AC joint degenerative changes. Other: n/a IMPRESSION: No acute osseous abnormality.
--- NOTE | 2024-09-26 21:31 | RAD REPORT ---
EXAMINATION: UPPER EXTREMITY VENOUS UNILATE CLINICAL INDICATION: Female, 49 years old.PAIN TECHNIQUE: Multiplanar grayscale and color Doppler images were obtained in a upper extremity venous ultrasound. Spectral analysis of the Doppler waveforms were performed. COMPARISON: No prior exams FINDINGS: The internal jugular vein, subclavian vein, axillary vein, basilic vein, brachial vein, cephalic vein , radial vein, and ulnar vein were evaluated and patent. The brachial vein, cephalic vein, radial vein, and ulnar veins were compressible and patent. IMPRESSION: No evidence of deep venous thrombosis in the left upper extremity.
--- NOTE | 2024-09-26 21:37 | ER ---
Nurse's Notes [facility] Name: Mirella Caruso Age: 49 yrs Sex: Female : 1975 Arrival Date: 09/26/2024 Time: 19:52 Bed 11 Private MD: Diagnosis: Pain in left shoulder Presentation: 09/26 20:08 Chief complaint: Patient states: SHE BEGAN HAVING LT SHOULDER PAIN RADIATING TO LT ARM dd2 AFTER SLEEPING ON HER ARM X1 NIGHT. Coronavirus screen: At this time, the client does not indicate any symptoms associated with coronavirus-19. Ebola Screen: No symptoms or risks identified at this time. Initial Sepsis Screen: Does the patient meet any 2 criteria? No. Patient's initial sepsis screen is negative. Does the patient have a suspected source of infection? No. Patient's initial sepsis screen is negative. Risk Assessment: Do you want to hurt yourself or someone else? Patient reports no desire to harm self or others. Onset of symptoms was September 25, 2024. 20:08 Method Of Arrival: Ambulatory dd2 20:08 Acuity: PING 4 dd2 Triage Assessment: 20:10 General: Appears in no apparent distress. uncomfortable, Behavior is calm, cooperative, dd2 appropriate for age. Pain: Complains of pain in anterior aspect of left shoulder Pain radiates to left bicep Pain currently is 10 out of 10 on a pain scale. Musculoskeletal: Circulation, motion, and sensation intact. Range of motion: limited in left shoulder Reports pain in anterior aspect of left shoulder and left bicep. [employer]: 20:10 LMP N/A - Post-menopause, Not dd2 Historical: - Allergies: 20:10 PENICILLINS; dd2 - PMHx: 20:10 Migraines; dd2 - PSHx: 20:10 Cholecystectomy; dd2 - Immunization history:: Adult Immunizations up to date. - Infectious Disease History:: Denies. - Social history:: Smoking status: Patient/guardian denies using tobacco, the patient reports quitting approximately 12 years ago. Screenin:16 [facility] ED Fall Risk Assessment (Adult) History of falling in the last 3 months, me1 including since admission No falls in past 3 months (0 pts) Confusion or Disorientation No (0 pts) Intoxicated or Sedated No (0 pts) Impaired Gait No (0 pts) Mobility Assist Device Used No (0 pt) Altered Elimination No (0 pt) Score/Fall Risk Level 0 - 2 = Low Risk Maintained a safe environment, Provided non-skid footwear, Hourly rounding (assess needs \T\ fall precautionary measures) done. Abuse screen: Denies threats or abuse. Nutritional screening: No deficits noted. Tuberculosis screening: No symptoms or risk factors identified. Assessment: 20:16 General: Appears uncomfortable, well groomed, well developed, well nourished, Behavior me1 is calm, cooperative, appropriate for age, Reports SHE BEGAN HAVING LT SHOULDER PAIN RADIATING TO LT ARM AFTER SLEEPING ON HER ARM X1 NIGHT. Pain: Complains of pain in left shoulder and anterior aspect of left shoulder Pain radiates to left bicep and left arm Pain currently is 10 out of 10 on a pain scale. Quality of pain is described as sharp, tight Pain began 1 day ago. Is continuous. Neuro: Level of Consciousness is awake, alert, obeys commands, Oriented to person, place, time, situation, Appropriate for age. Cardiovascular: Patient's skin is warm and dry. Respiratory: Airway is patent Respiratory effort is even, unlabored, Respiratory pattern is regular, symmetrical. GI: No signs and/or symptoms were reported involving the gastrointestinal system. : No signs and/or symptoms were reported regarding the genitourinary system. EENT: No signs and/or symptoms were reported regarding the EENT system. Derm: Skin is intact, is healthy with good turgor, Skin is pink, warm \T\ dry. Musculoskeletal: Reports pain in left shoulder and left bicep and left arm and anterior aspect of left shoulder. Injury Description: SHE BEGAN HAVING LT SHOULDER PAIN RADIATING TO LT ARM AFTER SLEEPING ON HER ARM X1 NIGHT. Vital Signs: 20:08 BP 134 / 93; Pulse 76; Resp 16; Temp 98.4; Pulse Ox 100% on R/A; Weight 72.57 kg; dd2 Height 5 ft. 4 in. ; Pain 10/10; 21:52 BP 128 / 91; Pulse 77; Resp 16; Temp 98.4; Pulse Ox 100% ; me1 21:52 Pain 3/10; me1 21:53 Pain 3/10; me1 20:08 Body Mass Index 27.46 (72.57 kg, 162.56 cm) dd2 20:08 Pain Scale: Adult dd2 21:52 Pain Scale: Adult me1 21:53 Pain Scale: Adult me1 ED Course: 19:55 Patient arrived in ED. cj3 19:58 Shanda Espinoza FNP-C is [facility]. kb 19:58 Chad Boles MD is Attending Physician. kb 20:10 Triage completed. dd2 20:10 Arm band placed on right wrist. dd2 20:15 Radha Dowling, RN is Primary Nurse. me1 20:16 Patient has correct armband on for positive identification. Bed in low position. Call me1 light in reach. Side rails up X2. Provided Education on: POC. Verbalized understanding.. Client placed on continuous cardiac and pulse oximetry monitoring. NIBP monitoring applied. Pulse ox on. NIBP on. 20:16 No provider procedures requiring assistance completed. me1 20:55 UPPER EXTREMITY VENOUS UNILATE In Process Unspecified. EDMS 21:14 Shoulder Left (2 View) XRAY In Process Unspecified. EDMS 21:53 IV discontinued, intact, bleeding controlled, No redness/swelling at site. Pressure me1 dressing applied. Administered Medications: 20:21 Drug: HYDROcodone-acetaminophen PO 5 mg-325 mg 1 tabs PO once Route: PO; me1 21:52 Follow up: Pain 3/10 Adult; Response: No adverse reaction; Pain is decreased me1 20:21 Drug: Diazepam PO 2 mg PO once Route: PO; me1 21:53 Follow up: Pain 3/10 Adult; Response: No adverse reaction; Pain is decreased me1 Medication: 20:16 VIS not applicable for this client. me1 Outcome: 21:36 Discharge ordered by . kb 21:53 Discharged to home ambulatory, with family, me1 21:53 Condition: stable 21:53 Discharge instructions given to patient, Instructed on discharge instructions, follow up and referral plans. medication usage, Demonstrated understanding of instructions, follow-up care, medications, Prescriptions given X 2, 21:53 Patient left the ED. me1 Signatures: Dispatcher [employer] EDMS Shanda Espinoza FNP-C FNP-Radha Campa RN RN me1 RASHEL HAYNES RN RN dd2 Freya Paris [email or web address] Corrections: (The following items were deleted from the chart) 20:16 20:08 Chief complaint: Patient states: SHE BEGAN HAVING LT SHOULDER PAIN RADIATING TO me1 LT ARM AFTER SLEEPING ON HER ARM X1 NIGHT. dd2
--- NOTE | 2024-09-26 21:37 | EDPHYS ---
Physician Documentation [facility] Name: Mirella Caruso Age: 49 yrs Sex: Female : 1975 Arrival Date: 09/26/2024 Time: 19:52 Bed 11 Private MD: MARINA Physician Chad Boles HPI: 09/26 21:22 This 49 yrs old Black Female presents to ER via Ambulatory with complaints of Arm Pain kb - LT. 21:22 Pt is a 49 year old female who presents for left shoulder pain that radiates down left kb arm. States the pain started after sleeping on her arm the night before last. Denies injury or trauma. . 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 - Infectious Disease History:: Denies. - Social history:: Smoking status: Patient/guardian denies using tobacco, the patient reports quitting approximately 12 years ago. ROS: 21:20 Constitutional: As per HPI kb Exam: 21:20 Constitutional: This is a well developed, well nourished patient who is awake, alert, kb and in no acute distress. Head/Face: Normocephalic, atraumatic. ENT: Moist Mucous membranes Cardiovascular: Regular rate Respiratory: Respirations even and unlabored. No increased work of breathing. Talking in full sentences Skin: Warm, dry with normal turgor. Normal color. Neuro: Awake and alert, GCS 15, oriented to person, place, time, and situation. 21:20 Musculoskeletal/extremity: Extremities: grossly normal except: noted in the anterior aspect of left shoulder: pain, tenderness, ROM: limited active range of motion due to pain, Circulation is intact in all extremities. Sensation intact. Vital Signs: 20:08 BP 134 / 93; Pulse 76; Resp 16; Temp 98.4; Pulse Ox 100% on R/A; Weight 72.57 kg; dd2 Height 5 ft. 4 in. ; Pain 10/10; 21:52 BP 128 / 91; Pulse 77; Resp 16; Temp 98.4; Pulse Ox 100% ; me1 21:52 Pain 3/10; me1 21:53 Pain 3/10; me1 20:08 Body Mass Index 27.46 (72.57 kg, 162.56 cm) dd2 20:08 Pain Scale: Adult dd2 21:52 Pain Scale: Adult me1 21:53 Pain Scale: Adult me1 MDM: 19:58 Medical Screening Exam initiated kb 21:21 Differential diagnosis: tendonitis, strain, arthritis, radiculopathy. Data reviewed: kb vital signs, nurses notes. Counseling: I had a detailed discussion with the patient and/or guardian regarding the historical points, exam findings, and any diagnostic results supporting the discharge/admit diagnosis, radiology results, the need for outpatient follow up, a family practitioner, to return to the emergency department if symptoms worsen or persist or if there are any questions or concerns that arise at home. 09/26 20:10 Order name: Shoulder Left (2 View) XRAY; Complete Time: 21:19 kb 09/26 20:30 Order name: UPPER EXTREMITY VENOUS UNILATE; Complete Time: 21:35 EDMS Administered Medications: 20:21 Drug: HYDROcodone-acetaminophen PO 5 mg-325 mg 1 tabs PO once Route: PO; me1 21:52 Follow up: Pain 3/10 Adult; Response: No adverse reaction; Pain is decreased me1 20:21 Drug: Diazepam PO 2 mg PO once Route: PO; me1 21:53 Follow up: Pain 3/10 Adult; Response: No adverse reaction; Pain is decreased me1 Disposition: 23:31 Co-signature as Attending Physician, Chad Boles MD I agree with the assessment and loi plan of care. Disposition Summary: 09/26/24 21:36 Discharge Ordered Notes: Location: Home kb Condition: Stable kb Diagnosis - Pain in left shoulder kb Followup: kb - With: Emergency Department - When: As needed - Reason: Worsening of condition Followup: kb - With: Private Physician - When: 2 - 3 days - Reason: Recheck today's complaints, Continuance of care, Re-evaluation by your physician Discharge Instructions: - Discharge Summary Sheet kb - Shoulder Pain, [id number] kb - Cervical Radiculopathy, [id number] kb Forms: - Medication Reconciliation Form kb - Antibiotic Education kb - Prescription Opioid Use kb - Patient Portal Instructions kb - Leadership Thank You Letter kb - Work release form me1 Prescriptions: - Diclofenac Sodium 75 mg Oral tablet, delayed release (enteric coated) - take 1 tablet ORAL route 2 times per day As needed; 30 tablet; Refills: 0, kb Product Selection Permitted - orphenadrine citrate 100 mg Oral Tablet Sustained Release - take 1 tablet ORAL route 2 times per day As needed; 20 tablet; Refills: 0, kb Product Selection Permitted Signatures: Dispatcher [employer] Shanda Maldonado, ERIS ARMSTRONG-Chad Weaver MD MD cha Eddleman, Michelle, RN RN me1 RASHEL HAYNES RN RN dd2 Corrections: (The following items were deleted from the chart) 20:30 20:10 Extremity Venous Uni [email or web address] ordered. MARINATN ROHAN
[2024-09-26 22:04] VITALS: TEMP 98.4; O2SAT 100
[2024-09-26 22:06] VITALS: BP 128/91
== END 2024-09-26 21:53 | disposition home or self-care (01) ==
LOC: ER 19:52
DX: M25.512 Pain in left shoulder (principal)
CPT/HCPCS: 93971; 99284